=== PATIENT | male | born 1985 | race Hispanic/Latino ===

== ENCOUNTER 2024-12-27 12:33 | Emergency (ER) | payer OTHER ==
--- OUTSIDE RECORDS SUMMARY | 2024-12-27 12:36 | XMS REPORT | Continuity of Care Document ---
Author Name Unknown Address [address] [place] [address] [facility] Address [address] [place] [address] Care Team Providers Care Supervisor Costuming Name Role Phone AGNIESZKA SINGLETARY Attending Clinician Unavailab le LAB90 Attending Clinician Unavailable GAYE OCONNOR Attending Clinician UnaMaykel Yan Attending Clinician Eduardo Rainey Attending Clinician EDUARDO IBARRA Attending Clinician Unavailable Payers Payer Name Policy Type Policy Number Effective Date Expirati on Date Source [facility] 2 [id number] 2021 00:00:00 Problems Condition Name Condition Details Condition Category Status Onset Date Resolution Date Last Treatment Date Treating Clinician Comments Source No known active problems No known active problems Disease [facility] Allergies, Adverse Reactions, Alerts Allergy Name Allergy Type Status Severity Reaction(s) Onset Date Inactive Date Treating Clinician Comments Source NO KNOWN ALLERGIE S Drug Class Active [facility] Social History Social Habit Start Date Stop Date Quantity Comments Source Exposure to SARS-CoV-2 (event) Not sure [facility] acute [facility] Sexual orientation Veronica Ding - External Tobacco use and exposure 2023-02-23 00:00:00 2023-02-23 00:00:00 Smokeless tobacco non-user Manoj Ding - External Alcohol intake 2023-02-23 00:00:00 2023-02-23 00:00:00 Current drinker of alcohol (finding) Manoj Ding - External History of Social function 2023-02-23 00:00:00 2023-02-23 00:00:00 Manoj Ding - External Alcohol Comment 2023-02-23 00:00:00 2023-02-23 00:00:00 4-8 beer on weekends Manoj Ding - External Sex Ass[birth year] At 1985 00:00:00 1985 00[birth year]00 Manoj Ding - External Smoking Status Start Date Stop Date Source Unknown if ever smoked [facility] Never smoked tobacco Manoj Ding - External Medications Ordered Medication Name Filled Medication Name Start Date Stop Date Current Medication? Ordering Clinician Indication Dosage Frequency Signature (SIG) Comments Components Source neomycin-po lymyxin-hyd rocortisone otic solution 11-10 00:00: 00 11-21 04:59 :00 No [id number] 3[drp] Place 3 Drops in right ear 4 (four) times daily for 10 days. [facility] Vital Signs Vital Name Observation Time Observation Value Comments S ource Systolic blood pressure 2023-02-23 20:14:00 126 mm[Hg] Manoj Hillo ld - External Diastolic blood pressure 2023-02-23 20:14:00 73 mm[Hg] Manoj Hillo ld - External Heart rate 2023-02-23 20:14:00 61 /min Alexis y ybold - External Respiratory rate 2023-02-23 20:14:00 20 /min Manoj Hillold - External Body height 2023-02-23 20:14:00 175.3 cm Alesha ignacio Seybold - External Body weight 2023-02-23 20:14:00 94.802 kg Alesha ignacio Seybold - External BMI 2023-02-23 20:14:00 30.86 kg/m2 Alesha ignacio Seybold - External Oxygen saturation in Arterial blood by Pulse oximetry 2023-02-23 20:14:00 97 /min Manoj Hillo ld - External Systolic blood pressure 2020-11-10 23:02:00 139 mm[Hg] [facility] Diastolic blood pressure 2020-11-10 23:02:00 81 mm[Hg] [facility] Heart rate 2020-11-10 23:02:00 87 /min Corinne [facility] Body temperature 2020-11-10 23:02:00 37.83 Codie [facility] Respiratory rate 2020-11-10 23:02:00 18 /min [facility] Body height 2020-11-10 23:02:00 170.2 cm [facility] Body weight 2020-11-10 23:02:00 83.462 kg [facility] BMI 2020-11-10 23:02:00 28.82 kg/m2 [facility] Oxygen saturation in Arterial blood by Pulse oximetry 2020-11-10 23:02:00 100 /min [facility] Encounters Start Date/Time End Date/Time Encounter Type Admission Type Attending Clinicians Care Facility Care Department Encounter ID Source 2023-02-24 00:00:00 2023-02-24 00:00:00 Outpatient AGNIESZKA SINGLETARY [id number] [facility] 2023-02-23 15:15:00 2023-02-23 15:15:00 Outpatient LAB90 MANOJ ARANDA [id number] [facility] 2023-02-23 14:30:00 2023-02-23 14:30:00 Outpatient AGNIESZKA SINGLETARY [id number] [facility] 2021-03-03 14:30:00 2021-03-03 14:30:00 Outpatient GAYE OCONNOR [id number] [facility] 2020-11-10 17:51:57 2020-11-10 18:11:57 [facility] [id number] [facility] 2020-11-10 17:40:00 2020-11-10 17:40:00 Outpatient Mickey IBARRA EDUARDO [facility] [id number] [facility]
--- NOTE | 2024-12-27 13:09 | RAD REPORT ---
EXAMINATION: Head C Spine Mpr Wo Con CLINICAL INDICATION: Male, 39 years old. TRAUMA TECHNIQUE: Axial CT images from the skull base to the vertex without intravenous contrast. Axial CT i mages through the cervical spine were obtained without intravenous contrast. Sagittal and coronal reformatted images were created from the data set. Coronal and sagittal reformatted images were creat ed from the data set. One or more of the following dose reduction techniques were used: Automated exposure control, adjustment of the mA and/or kV according to patient size, and/or iterative reconstr uction. Unless otherwise specified, incidental findings do not require dedicated imaging follow-up. [id number]. COMPARISON: No prior exams FINDINGS: Head: INTRACRANIAL: No acute intracranial hemorrhage. No acute large vascular territory infarct. No hydroce phalus. No mass effect or midline shift. No significant white matter disease. VASCULATURE: No visualized abnormalities in the arteries or dural venous sinuses. SCALP/SKULL: No calvarial fracture identified. No acute soft tissue abnormality. SINUSES: The visualized paranasal sinuses are mostly clear. No significant mastoid fluid. Cervical spine: ALIGNMENT: The cervical spine has normal alignment without scoliosis or spondylolisthesis. BONE: Vertebral body heights are maintained. No aggressive osseous lesions. DEGENERATIVE: No significant focal degenerative changes. SOFT TISSUE: No significant abnormalities in the soft tissue of the neck. The visualized lung apices are clear. IMPRESSION: No acute intracranial abnormality. No acute fracture or traumatic malalignment of the cervical spine.
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
[2024-12-27] MEDS ORDERED: KETOROLAC 30 MG/ML INJ ONE (13:41)
[2024-12-27] MEDS ORDERED: HYDROCODONE/APAP 5/325 MG TAB ONE (13:41)
[2024-12-27 14:08] VITALS: BP 155/80; TEMP 98.1; O2SAT 99
== END 2024-12-27 14:04 | disposition home or self-care (01) ==
LOC: ER 12:33
DX: M54.2 Cervicalgia (principal); V49.40XA Driver injured in collision with unspecified motor vehicles in traffic accident, initial encounter
CPT/HCPCS: 70450; 72125; 96372; 99284